=== PATIENT | female | born 1955 | race Caucasian/White ===

== ENCOUNTER → 2022-11-19 07:35 | Outpatient (REF) | payer MEDICARE, SELFPAY ==
--- NOTE | 2022-11-19 07:40 | CA_ITS ---
Transthoracic Echocardiogram Patient (Last, First, Middle): Yoshi Mccabe, Gender: Female Date of : 1955 Age: 67 Procedure Date: 11/19/2022 Procedure Type: Transthoracic Echocardiogram Location: OP Height: 152.4 cm Weight: 61.24 kg BSA: 1.58 m2 Heart Rate: bpm BP: 124 / 74 mmHg Client Portfolio Manager: TO Referring MD: Froilan Leung DO Symptoms: CHEST PAIN Study Quality: Adequate ECG Rhythm: Sinus Conclusions: - The left ventricular systolic function is normal. The calculated ejection fraction is 68% by biplane method. - There is mild calcification of the aortic valve. - There is mild tricuspid valve regurgitation. Findings Left Ventricle Normal left ventricular cavity size. The left ventricular systolic function is normal. The calculated ejection fraction is 68% by biplane method. There is no evidence of regional wall motion abnormalities. Diastolic function is normal for age. There is mild septal and mild basal asymmetric hypertrophy. Right Ventricle Normal right ventricular cavity size and systolic function. Atria Both atria are normal in size. Aortic Valve There is a normal trileaflet aortic valve. There is mild calcification of the aortic valve. There is no aortic valve stenosis. There is no aortic valve regurgitation. Mitral Valve The mitral valve appears normal. There is trace mitral valve regurgitation. There is no mitral valve stenosis. Pulmonic Valve There is trace pulmonic valve regurgitation. Tricuspid Valve Normal tricuspid valve structure. There is mild tricuspid valve regurgitation. There is no evidence of pulmonary hypertension. Great Vessels The asc aorta is normal in size. Venous The inferior vena cava is normal in size and collapses greater than 50% with inspiration. Pericardium/Pleural There is no evidence of pericardial effusion. Prior Study Comparison No prior study available for comparison. Measurements 2D Linear Measurements IVSd: 1.11 0.6-0.9/0.6-1.0 cm LVIDd: 4.06 3.9-5.3/4.2-5.9 cm LVIDd Index: 2.57 2.4-3.2/2.2-3.1 cm/m2 LVIDs: 2.04 2.0-3.6 cm LVPWd: 0.86 0.7-1.1 cm LA Diam: 3.50 2.7-3.8/3.0-4.0 cm LAIDs Index: 2.22 1.5-2.3 cm/m2 LV Mass: 158.20 67-162/88-224 g LV Mass Index: 100.13 43-95/49-115 g/m2 LVOT Diam: 2.00 3.0+(-)1.3 cm 2D Systolic Function EF 4C: 68.30 >55% EF 2C: 69.70 >55% EF BiP: 68.10 >55% Mitral Valve MV VTI: 0.27 MV Pk Marco: 1.02 MV Mn Marco: 0.61 MV Pk Grad: 4.00 MV Mn Grad: 2.00 MV Pk E: 0.86 MV PK A: 0.81 MV Decel Time: 152.00 E/A: 1.10 E'Lateral: 9.57 E'Medial: 6.96 E/E' Med: 12.40 E/E' Lat: 9.00 PHT: 44.00 MVA PHT: 5.00 MVA Continuity: 3.02 Decel [place]: 5.68 Aortic Valve AoV Pk Marco: 1.46 AoV Mn Marco: 0.97 AoV VTI: 0.35 AoV Pk Grad: 9.00 Aov Mn Grad: 4.00 KEVIN Cont.VTI: 2.28 LVOT LVOT Pk Marco: 1.13 LVOT Mn Marco: 0.68 LVOT VTI: 0.26 LVOT Pk Grad: 5.00 LVOT Mn Grad: 2.00 LVOT Diam: 2.00 LVOT Area: 3.14 Diastolic Function MV Pk E: 0.86 MV Pk A: 0.81 E/A: 1.10 E'Medial: 6.96 E/E' Med: 12.40 E' Laterial: 9.57 E/E' Lat: 9.00 Right Ventricle TAPSE (mm): 23.60 TVS' Marco: 11.20 Tricuspid Valve TR Pk Marco: 2.39 TR Pk Grad: 23.00 RA Press: 3.00 RVSP: 26.00 Great Vessels Aorta Sinus of Valsalva: 2.57 2.0-3.[address] [place]: 1.81 1.7-3.4 cm Ao Asc: 3.00 2.1-3.4 cm Updated in Other Vendor System with Status of Final Sukhwinder Garber MD electronically signed on 11/19/2022 4:06:31 PM with status of Final
== END ==
LOC: HO.CARD 07:35
PROVIDERS: PCP Family Medicine; Visit Provider Family Medicine
DX: R07.9 Chest pain, unspecified (principal)
CPT/HCPCS: 93306

== ENCOUNTER → 2022-11-19 07:40 | Outpatient (BNV) | payer MEDICARE, SELFPAY | PROVIDERS: PCP Family Medicine; Visit Provider Internal Medicine | DX: I36.1 Nonrheumatic tricuspid (valve) insufficiency (principal); I35.8 Other nonrheumatic aortic valve disorders | CPT/HCPCS: 93306 ==